=== PATIENT | female | born 1965 | race Hispanic/Latino ===

== ENCOUNTER 2017-10-27 19:44 | Emergency (ER) | payer SELFPAY | END 2017-10-27 20:44 | disposition home or self-care (01) | LOC: EDH 19:44 | DX: R59.9 Enlarged lymph nodes, unspecified (principal); J02.0 Streptococcal pharyngitis; R50.81 Fever presenting with conditions classified elsewhere; H92.01 Otalgia, right ear; I10 Essential (primary) hypertension ==

== ENCOUNTER 2018-07-03 01:10 | Emergency (ER) | payer OTHER ==
[2018-07-03] MEDS ORDERED: KETOROLAC TROMETHAMINE 60 MG/2 ML VIAL ONE (01:27)
== END 2018-07-03 02:36 | disposition home or self-care (01) ==
LOC: EDH 01:10
DX: S52.591A Other fractures of lower end of right radius, initial encounter for closed fracture (principal); I10 Essential (primary) hypertension; W18.39XA Other fall on same level, initial encounter; Y93.89 Activity, other specified; Y92.098 Other place in other non-institutional residence as the place of occurrence of the external cause; Y99.8 Other external cause status
CPT/HCPCS: 29125; 73110; 96372; 99284; J1885

== ENCOUNTER 2019-01-09 17:19 | Emergency (ER) | payer OTHER, SELFPAY ==
[2019-01-09 18:27] LABS: BASOPHILS % (AUTO) 0.3 % (0.0-5.0); EOSINOPHILS % (AUTO) 0.4 % (0.0-8.0); HEMATOCRIT 42.9 % (36-48); LYMPHOCYTES % (AUTO) 17.5 % (21.0-51.0); MEAN CORPUSCULAR HEMOGLOBIN 30.3 pg (27.0-33.0); MEAN CORPUSCULAR HGB CONC 34.9 g/dL (32.0-36.0); MEAN CORPUSCULAR VOLUME 86.8 fL (79-99); MONOCYTES % (AUTO) 3.6 % (3.0-13.0); NEUTROPHILS % (AUTO) 78.2 % (40.0-77.0); NUCLEATED RED BLOOD CELLS 0.1 % (0.0-0.19); PLATELET COUNT (AUTO) 412 K/uL (130-400); RED BLOOD CELL COUNT(AUTO) 4.94 MIL/uL (4.00-5.50); RED CELL DISTRIBUTION WIDTH 12.1 % (11.0-15.5); WHITE BLOOD COUNT (AUTO) 10.6 K/uL (4.8-10.8)
[2019-01-09 18:37] LABS: CREATININE 0.7 mg/dL (0.5-1.5); POTASSIUM 3.4 mmol/L (3.5-5.1)
[2019-01-09 18:41] LABS: INR 0.97 (0.85-1.15); PROTHROMBIN TIME 10.2 SEC (9.6-11.6)
[2019-01-09 18:42] LABS: APPEARANCE,URINE Clear (CLEAR); BILIRUBIN,URINE Negative (NEGATIVE); COLOR,URINE Yellow (YELLOW); GLUCOSE, URINE (UA) Negative (NEGATIVE); KETONES,URINE Negative (NEGATIVE); LEUKOCYTE ESTERASE ,URINE Small (NEGATIVE); NITRATE,URINE Negative (NEGATIVE); OCCULT BLOOD,URINE Negative (NEGATIVE); PH,URINE 6.5 (5.0-8.0); PROTEIN,URINE Negative (NEGATIVE); UROBILINOGEN,URINE 0.2 mg/dL (0.2-1.0)
[2019-01-09 18:43] LABS: ALBUMIN 4.5 g/dL (3.5-5.0); BILIRUBIN,TOTAL 0.4 mg/dL (0.2-1.0); TOTAL PROTEIN, SERUM 8.4 g/dL (6.0-8.3)
[2019-01-09] MEDS ORDERED: DiphenhydrAMINE HCL 50 MG/ML VIAL ONE (19:06)
[2019-01-09] MEDS ORDERED: ONDANSETRON HCL 4 MG/2 ML VIAL ONE (19:06)
[2019-01-09] MEDS ORDERED: KETOROLAC TROMETHAMINE 15MG/ML ONE (19:07)
[2019-01-09 19:26] LABS: BACTERIA,URINE Few /HPF (None Seen); RBC,URINE None Seen /HPF (0-1)
== END 2019-01-09 21:05 | disposition home or self-care (01) ==
LOC: EDH 17:19
DX: G43.109 Migraine with aura, not intractable, without status migrainosus (principal); I10 Essential (primary) hypertension; R07.89 Other chest pain
CPT/HCPCS: 36415; 80053; 81001; 82550; 84484 ×2; 85025; 85610; 85730; 93005 ×2; 96374; 96375; 99284; J1200; J1885; J2405

== ENCOUNTER 2019-10-26 15:33 | Emergency (ER) | payer SELFPAY | END 2019-10-26 16:33 | disposition home or self-care (01) | LOC: EDH 15:33 | DX: S70.11XA Contusion of right thigh, initial encounter (principal); S80.11XA Contusion of right lower leg, initial encounter; I10 Essential (primary) hypertension; W22.8XXA Striking against or struck by other objects, initial encounter; Y93.89 Activity, other specified; Y92.89 Other specified places as the place of occurrence of the external cause; Y99.8 Other external cause status | CPT/HCPCS: 99281 ==

== ENCOUNTER 2022-11-28 19:35 | Emergency (ER) | payer OTHER ==
[~2022-11-28] VITALS: Ht 152.4 cm; Wt 64.9 kg
[2022-11-28] MEDS ORDERED: TETRACAINE HCL 0.5% 4 ML OPHTH SOLN ONE (19:49)
[2022-11-28] MEDS ORDERED: FLUORESCEIN SODIUM 1 STRIP STRIP ONE (19:49)
[2022-11-28] MEDS ORDERED: LABETALOL 20MG VIAL IV ONE (20:00)
[2022-11-28 20:13] LABS: HEMATOCRIT 37.5 % (36-48); MEAN CORPUSCULAR HEMOGLOBIN 29.3 pg (27.0-33.0); MEAN CORPUSCULAR HGB CONC 33.6 g/dL (32.0-36.0); MEAN CORPUSCULAR VOLUME 87.2 fL (79-99); NEUTROPHILS % (AUTO) 65.8 % (40.0-77.0); PLATELET COUNT (AUTO) 347 K/uL (130-400); RED CELL DISTRIBUTION WIDTH 11.8 % (11.0-15.5)
[2022-11-28 20:14] LABS: BASOPHILS % (AUTO) 0.1 % (0.0-5.0); EOSINOPHILS % (AUTO) 2.6 % (0.0-8.0); LYMPHOCYTES % (AUTO) 25.7 % (21.0-51.0); MONOCYTES % (AUTO) 5.2 % (3.0-13.0)
[2022-11-28 20:27] LABS: CREATININE 0.6 mg/dL (0.5-1.5)
[2022-11-28 20:30] LABS: INR 0.93 (0.85-1.15); PROTHROMBIN TIME 10.1 SEC (9.6-11.6)
[2022-11-28 20:31] LABS: PARTIAL THROMBOPLASTIN TIME 27.6 SEC (26.3-35.5)
[2022-11-28 20:32] LABS: TOTAL PROTEIN, SERUM 7.5 g/dL (6.0-8.3)
[2022-11-28] MEDS ORDERED: KCL 20 MEQ ERTAB PO ONE (21:00)
[2022-11-28] MEDS ORDERED: POLY10DR22 OP (22:06)
[2022-11-28] MEDS ORDERED: HYDRALAZINE 20MG/ML VIAL ONE (22:13)
[2022-11-28 22:18] VITALS: BP 142/70
[2022-11-28] MEDS ORDERED: HYDRALAZINE 20MG/ML VIAL IV ONE (22:30)
== END 2022-11-28 22:23 | disposition home or self-care (01) ==
LOC: EDH 19:35
DX: H11.31 Conjunctival hemorrhage, right eye (principal); I10 Essential (primary) hypertension; Z90.49 Acquired absence of other specified parts of digestive tract; Z90.89 Acquired absence of other organs; Z90.710 Acquired absence of both cervix and uterus; Z79.899 Other long term (current) drug therapy
CPT/HCPCS: 99285; 96374; 70450; 96375; 80053; 85025; 85610; 85730; 36415; J0360; J3490